=== PATIENT | male | born 1980 ===

== ENCOUNTER 2018-11-09 14:07 | Emergency (ER) | payer MEDICAID, OTHER ==
[2018-11-09 14:07] VITALS: BMI 30.3
[2018-11-09 14:13] VITALS: BP 106/65; PULSE 77; RESP 16; TEMP 98.2; O2SAT 96
[2018-11-09] MEDS ORDERED: Lidocaine 1% Inj (20ml) ONE (14:50)
[2018-11-09] MEDS ORDERED: Povidone Iodine Oint 10% Foilpak UD ONE (15:09)
--- NOTE | 2018-11-09 15:19 | ED PDOC ---
HPI: Wound Care - HPI Time Seen by Provider: 11/09/18 14:15 Chief Complaint (Nursing): Abnormal Skin Integrity Chief Complaint (Provider): Finger, Hand, &wrist History Per: Patient Exam Limitations: no limitations Onset/Duration Of Symptoms: Mins (40x minutes prior to arrival) Current Symptoms Are (Timing): Still Present Location Of Injury: Left: Hand Severity: Moderate Additional Complaint(s): 38 year old male with no pertinent past medical history presents to the ED for an evaluation of a left hand laceration he sustained 40x minutes prior to arrival. 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 Patient denies having any other complaints. Tetanus is up to date. PMD: None provided. Past Medical History Reviewed: Historical Data, Nursing Documentation, Vital Signs Vital Signs: Last Vital Signs Temp 98.2 F 11/09/18 14:10 Pulse 77 11/09/18 14:10 Resp 16 11/09/18 14:10 BP 106/65 11/09/18 14:10 Pulse Ox 96 11/09/18 14:10 AMEENA Report Viewed: Yes Primary Care Provider: FAMILY PROVIDER,NO - Medical History PMH: Kidney Stones - Family History Family History: States: No Known Family Hx - Social History Current smoker - smoking cessation education provided: Yes Alcohol: None Drugs: Cannabis - Immunization History Hx Tetanus Toxoid Vaccination: Yes (2014 or 2015) Hx Influenza Vaccination: No Hx Pneumococcal Vaccination: No - Home Medications Home Medications: Ambulatory Orders Medication Instructions Recorded Cyclobenzaprine [Cyclobenzaprine 10 mg PO Q8 #9 tab 10/06/17 HCl] Ibuprofen [Motrin] 600 mg PO TID #30 tab 10/06/17 Cephalexin [Keflex] 500 mg PO BID #10 capsule 11/09/18 - Allergies Allergies/Adverse Reactions: Allergies Allergy/AdvReac Type Severity Reaction Status Date / Time No Known Allergies Allergy Verified 11/09/18 14:10 Review of Systems ROS Statement: Except As Marked, All Systems Reviewed And Found Negative Musculoskeletal: Positive for: Other (left hand laceration (to the palm)) Physical Exam - Reviewed Nursing Documentation Reviewed: Yes Vital Signs Reviewed: Yes - Physical Exam Appears: Positive for: Well, Non-toxic, No Acute Distress Head Exam: Positive for: ATRAUMATIC, NORMOCEPHALIC Skin: Positive for: Normal Color, Warm, Dry Extremity: Positive for: Other (3.5 cm laceration between 4th and 5th digit of left palmar surface. Flexion and extension of fingers intact. Remainder of hand and fingers normal.) Neurological/Psych: Positive for: Awake, Alert, Oriented (3x) - ECG O2 Sat by Pulse Oximetry: 96 (RA) Pulse Ox Interpretation: Normal Procedure: Wound Repair - Time Performed Time Performed: 15:30 - Time Out Time Out: Side verified, Site verified, Patient ID confirmed - Consent Obtained Consent obtained: Verbal - Performed by Performed by: Mid-level Provider - Indications Indication(s):: Laceration - Location Location:: Left, Hand (palmar surface) Shape:: Linear Dimensions Length cm: 3.5 cm Depth:: Epidermis (0.5 cm) - Debris Debris:: None - Irrigated Irrigated with ml of normal saline: 150 - Complexity Complexity:: Simple (one layer) - Wound repair method Sutures:: # (5), Size (4-0), Type (ethilon) - Patient tolerated procedure Patient Tolerated Procedure:: Well Medical Decision Making Medical Decision Makin:15 Initial impression: 38 year old male with a hand laceration Initial plan: * laceration repair 15:30 Laceration repair: Irrigated with 150 ccs of normal saline. (-) foreign objects noted. 0.5 cm deep, simple. Prepped with betadyne. Patient tolerated procedure well. Used 5 4-0 ethilon sutures. Applied bacitracin, dressed with telfa and cling. Patient is medically stable, and requires no further treatment in the ED at this time. Patient will be discharged home with an Rx for keflex for infection prophylaxis and wound care instructions. Counseling was provided and all questions were answered regarding diagnosis and need to return to ED in 7-10x days for suture removal. There is agreement to discharge plan. Return if symptoms persist or worsen. ScribeAttestation: Documented byShannan Domingo, acting as a scribe for Pearl Gabriel APN. Provider ScribeAttestation: All medical record entries made by the Scribe were at my direction and personally dictated by me. I have reviewed the chart and agree that the record accurately reflects my personal performance of the history, physical exam, medical decision making, and the department course for this patient. I have also personally directed, reviewed, and agree with the discharge instructions and disposition. Disposition - Clinical Impression Clinical Impression: Hand laceration - Patient ED Disposition Is Patient to be Admitted: No Counseled Patient/Family Regarding: Diagnosis, Need For Followup, Rx Given - Disposition Disposition: Routine/Home Disposition Time: 15:57 Condition: GOOD Additional Instructions: Return to ED in 7 days for suture removal. Prescriptions: Cephalexin [Keflex] 500 mg PO BID #10 capsule Instructions: Laceration Repair With Stitches (DC) Forms: [employer] (Latvian) Print Language: SINHALA - POA Present On Arrival: None
== END 2018-11-09 15:58 | disposition home or self-care (01) ==
LOC: H.ER 14:07
DX: S61.412A Laceration without foreign body of left hand, initial encounter (principal); W26.0XXA Contact with knife, initial encounter; Y99.0 Civilian activity done for income or pay

== ENCOUNTER 2018-11-16 15:30 | Emergency (ER) | payer SELFPAY ==
[2018-11-16 15:30] VITALS: BMI 30.3
[2018-11-16 16:07] VITALS: BP 109/78; PULSE 61; RESP 16; TEMP 98.2; O2SAT 97
[2018-11-16] MEDS ORDERED: Tdap Vaccine 0.5 ml Vial (10-64 yrs) IM ONE ×2 (16:56→17:22)
[2018-11-16] MEDS ORDERED: Bacitracin OINT 15GM TOP STA (16:56)
--- NOTE | 2018-11-16 17:18 | ED PDOC ---
HPI: Wound Care - HPI Time Seen by Provider: 11/16/18 16:14 Chief Complaint (Nursing): Suture/Staple Removal Chief Complaint (Provider): Suture Removal History Per: Patient Exam Limitations: no limitations Onset/Duration Of Symptoms: Days (x7) Current Symptoms Are (Timing): Better Additional Complaint(s): 38 year old male presents to the ED for suture removal. Patient reports one week ago he cut the base of his left fifth digit/palm with a knife at work and came to this ED for suture repair, where five sutures were placed and he was sent h ome on antibiotics. He notes being compliant with the antibiotics and says while he has no fever, chills, swelling or discharge from the wound, he does have some localized pain still. Patient states that last visit he said his tetanus was up to date, however now he is unsure of when his last booster was - will update this visit. Past Medical History Reviewed: Historical Data, Nursing Documentation, Vital Signs Vital Signs: Last Vital Signs Temp 98.2 F 11/16/18 16:06 Pulse 61 11/16/18 16:06 Resp 16 11/16/18 16:06 BP 109/78 11/16/18 16:06 Pulse Ox 97 11/16/18 16:06 Primary Care Provider: Dg Alvarez R - Medical History PMH: Kidney Stones - Surgical History Other surgeries: oral surgery - Family History Family History: States: Unknown Family Hx - Home Medications Home Medications: Ambulatory Orders Medication Instructions Recorded Cyclobenzaprine [Cyclobenzaprine 10 mg PO Q8 #9 tab 10/06/17 HCl] Ibuprofen [Motrin] 600 mg PO TID #30 tab 10/06/17 Cephalexin [Keflex] 500 mg PO BID #10 capsule 11/09/18 Bacitracin Ointment [Bacitracin] 1 applic TOP BID #1 tube 11/16/18 - Allergies Allergies/Adverse Reactions: Allergies Allergy/AdvReac Type Severity Reaction Status Date / Time No Known Allergies Allergy Verified 11/16/18 16:06 Review of Systems ROS Statement: Except As Marked, All Systems Reviewed And Found Negative Constitutional: Negative for: Fever, Chills Skin: Positive for: Other ([address] to left hand 5th digit without drainge or complications, mildly painful) Physical Exam - Reviewed Nursing Documentation Reviewed: Yes Vital Signs Reviewed: Yes - Physical Exam Comments: GENERAL APPEARANCE: Patient is awake, alert, oriented x 3, in no acute distress. Resting comfortably. SKIN: Warm, dry (-) rash (-) cyanosis NECK: Supple, FROM ENT: Mucus membranes moist. Airway patent (-) stridor. CHEST AND RESPIRATORY: lungs clear to auscultation bilaterally; breath sounds equal, respirations even and non-labored. HEART AND CARDIOVASCULAR: RRR, (-) irregularity LEFT UPPER EXTREMITY: Hand: (+) [address] to a healing horizontal laceration approx. 2cm in size to the palmar aspect of distal 5th metacarpal, (- ) discharge, (-) erythema, (-) warmth, (-) break in skin integrity, (+) mild localized tenderness. FROM to hand, digits, and wrist. Sensation and cap refill intact. Remainder of LUE: full ROM, non-tender. NEURO AND PSYCH: Mental status as above. Gait: steady. Speech: clear. (-) facial asymmetry. Normal cognition. - ECG O2 Sat by Pulse Oximetry: 97 (RA) Pulse Ox Interpretation: Normal Medical Decision Making Medical Decision Making: Initial Impression: visit for wound check, suture removal Time: 1654 Initial Plan: --Tetanus booster IM --Sutures removed without difficulty by MAMIE Villegas. Bacitracin applied and advised patient to continue wound care at home along with completing his prescribed course of antibiotics. Based on history, exam and diagnostic results, plan will be for outpatient follow up. Patient instructed to follow-up with pmd / referral provided / the clinic in 1- 2 days without fail. Advised to take medication as prescribed. Return to the emergency room at any time for any new or worsening symptoms. Patient states he fully agrees with and understands discharge instructions. States that he agrees with the plan and disposition. Verbalized and repeated discharge instructions and plan. I have given the patient opportunity to ask any additional questions. Scribe Attestation: Documented by Elaina Flanagan, acting as a scribe for Shannan Villegas PA-C. Provider Scribe Attestation: All medical record entries made by the Scribe were at my direction and personally dictated by me. I have reviewed the chart and agree that the record accurately reflects my personal performance of the history, physical exam, medical decision making, and the department course for this patient. I have also personally directed, reviewed, and agree with the discharge instructions and disposition. Disposition - Clinical Impression Clinical Impression: Removal of suture, Visit for wound check, Hand laceration - Patient ED Disposition Is Patient to be Admitted: No Counseled Patient/Family Regarding: Studies Performed, Diagnosis, Need For Followup, Rx Given - Disposition Referrals: Nagi Arauz MD [Medical Doctor] - Disposition: Routine/Home Disposition Time: 17:45 Condition: STABLE Additional Instructions: The emergency medical care you received today was directed at your acute symptoms. If you were prescribed any medication, please fill it and take as directed. It may take several days for your symptoms to resolve. Return to the Emergency Department if your symptoms worsen, do not improve, or if you have any other problems. Please contact your doctor in 2 days for re-evaluation and follow up / or call one of the physicians/clinics you have been referred to that are listed on the Patient Visit Information form that is included in your discharge packet. Bring any paperwork you were given at discharge with you along with any medications you are taking to your follow up visit. Our treatment cannot replace ongoing medical care by a primary care provider (PCP) outside of the emergency department. Prescriptions: Bacitracin Ointment [Bacitracin] 1 applic TOP BID #1 tube Instructions: Stitches Removal, Wound Care Forms: [employer] (Lao) Print Language: CROATIAN - POA Present On Arrival: None
[2018-11-16] MEDS ORDERED: Bacitracin 500 Units/gm Oint Foilpak UD ONE (17:22)
== END 2018-11-16 17:53 | disposition home or self-care (01) ==
LOC: H.ER 15:30
DX: Z48.02 Encounter for removal of sutures (principal); Z23 Encounter for immunization